=== PATIENT | male | born 1945 | race Caucasian/White ===

== ENCOUNTER 2023-05-24 09:24 | Outpatient (CLI) | payer OTHER ==
[2023-05-24] MEDS ORDERED: CYSTOGRAFIN 300 ML INFUS..BTL UR ONE (09:51)
[2023-05-24] MEDS ORDERED: GASTROGRAFIN 120 ML ONE (09:51)
== END 2023-05-24 18:12 | disposition home or self-care (01) ==
LOC: SRD 09:24
PROVIDERS: ATTEND Urology Pediatric Urology
DX: C61 Malignant neoplasm of prostate (principal)
CPT/HCPCS: 74430; 51600; Q9963; Q9958

== ENCOUNTER 2023-06-07 09:42 | Outpatient (CLI) | payer OTHER ==
[2023-06-07] MEDS ORDERED: CYSTOGRAFIN 300 ML INFUS..BTL UR ONE (10:08)
== END 2023-06-07 19:38 | disposition home or self-care (01) ==
LOC: SRD 09:42
PROVIDERS: ATTEND Urology Pediatric Urology
DX: C61 Malignant neoplasm of prostate (principal)
CPT/HCPCS: 74430; 51600; Q9958

== ENCOUNTER 2023-06-14 08:53 | Outpatient (CLI) | payer OTHER ==
[2023-06-14] MEDS ORDERED: CYSTOGRAFIN 300 ML INFUS..BTL UR ONE (09:17)
== END 2023-06-14 19:18 | disposition home or self-care (01) ==
LOC: SRD 08:53
PROVIDERS: ATTEND Urology Pediatric Urology
DX: C61 Malignant neoplasm of prostate (principal)
CPT/HCPCS: 74430; 51600; Q9958

== ENCOUNTER 2023-07-04 09:21 | Outpatient (CLI) | payer OTHER ==
[2023-07-04] MEDS ORDERED: CYSTOGRAFIN 300 ML INFUS..BTL UR ONE (09:32)
== END 2023-07-04 20:11 | disposition home or self-care (01) ==
LOC: SRD 09:21
PROVIDERS: ATTEND Urology Pediatric Urology
DX: C61 Malignant neoplasm of prostate (principal)
CPT/HCPCS: 74430; 51600; Q9958